=== PATIENT | male | born 1950 | race African-American/Black ===

== ENCOUNTER 2017-10-24 07:57 | Emergency (ER) | payer MEDICARE | END 2017-10-24 09:35 | disposition home or self-care (01) | LOC: ER 07:57 | DX: S93.402A Sprain of unspecified ligament of left ankle, initial encounter (principal); E78.00 Pure hypercholesterolemia, unspecified; X50.3XXA Overexertion from repetitive movements, initial encounter; Y93.89 Activity, other specified; Y99.8 Other external cause status; Y92.89 Other specified places as the place of occurrence of the external cause | CPT/HCPCS: 29515; 73610; 99284-25 ==